=== PATIENT | female | born 1970 | race Hispanic/Latino ===

== ENCOUNTER 2023-12-24 13:54 | Emergency (ER) | payer OTHER ==
[~2023-12-24] VITALS: Ht 156.2 cm; Wt 86.0 kg
[2023-12-24] MEDS ORDERED: HYDROmorphone HCL 2 MG/AMP IV ONE (15:05)
[2023-12-24] MEDS ORDERED: KETOROLAC TROMETHAMINE 15 MG/ML SDV IV ONE (15:05)
[2023-12-24] MEDS ORDERED: ONDANSETRON HCl 4 MG/2 ML SDV IV ONE (15:05)
[2023-12-24] MEDS ORDERED: FLEXERIL5 M1 PO (16:35)
[2023-12-24] MEDS ORDERED: MOTRIN800 MG PO (16:35)
[2023-12-24] MEDS ORDERED: PERCOCET 5/325M1 TAB PO (16:36)
[2023-12-24 16:43] VITALS: BP 128/67
== END 2023-12-24 16:59 | disposition home or self-care (01) | DRG 552 ==
LOC: ED 13:54
DX: S32.019A Unspecified fracture of first lumbar vertebra, initial encounter for closed fracture (principal); S00.93XA Contusion of unspecified part of head, initial encounter; E05.90 Thyrotoxicosis, unspecified without thyrotoxic crisis or storm; W17.89XA Other fall from one level to another, initial encounter; Y92.009 Unspecified place in unspecified non-institutional (private) residence as the place of occurrence of the external cause